=== PATIENT | female | born 1965 | race Caucasian/White ===

== ENCOUNTER 2018-01-12 04:18 | Emergency (ER) | payer SELFPAY ==
[2018-01-12] MEDS ORDERED: Lidocaine 4% Cream 5 GM TUBE w/ Tegaderm ONE (04:52)
[2018-01-12] MEDS ORDERED: Tetracaine 0.5% OPHTH SOLN/PF 4 ML BOT ONE (05:02)
[2018-01-12] MEDS ORDERED: Fentanyl 100 MCG/2 ML VIAL ONE (05:13)
[2018-01-12 05:38] LABS: #Lymphocytes 0.9 thou/uL (1.20-3.40); #Monocytes 0.4 thou/uL (0.11-0.59); #Neutrophils 8.4 thou/uL (1.40-6.50); %Basophils 0.3 % (0.0-1.0); %Eosinophils 0.4 % (0.0-10.0); %Lymphocytes 9.6 % (21.0-51.0); %Neutrophils 85.7 % (42.0-75.0); Hemoglobin 11.9 g/dL (12.0-16.0); Mean Corpuscular HGB CONC 32.8 g/dL (32.0-36.0); Mean Corpuscular Hemoglobin 27.1 pg (27.0-31.0); Mean Corpuscular Volume 82.6 fL (78.0-98.0); Mean Platelet Volume 8.9 fL (7.4-10.4); Platelet Count 173 thou/uL (130-400); RBC Distribution Width 13.8 % (11.5-14.5); White Blood Cell (WBC) Count 9.8 thou/uL (4.8-10.8)
[2018-01-12 05:50] LABS: ALT (SGPT) 62 U/L (8-55); AST (SGOT) 76 U/L (5-34); Albumin 4.3 g/dL (3.5-5.0); Alcohol 177 mg/dL (Less than 10); Alkaline Phosphatase 76 U/L (40-150); Anion Gap 19 mmol/L (10-20); BUN (Urea Nitrogen) 14 mg/dL (9.8-20.1); Bilirubin, Total 0.2 mg/dL (0.2-1.2); Calc. Creatinine Clearance 0 mL/min (70-130); Calcium 8.6 mg/dL (7.8-10.44); Carbon Dioxide 17 mmol/L (22-29); Chloride 108 mmol/L (98-107); Estimated GFR-MDRD 89; Globulin 2.6 g/dL (2.4-3.5); Glucose 111 mg/dL (70-105); Potassium 3.5 mmol/L (3.5-5.1); Protein, Total 6.9 g/dL (6.0-8.3); Sodium 140 mmol/L (136-145)
[2018-01-12] MEDS ORDERED: HYDROmorphone 0.5 MG/0.5 ML SYRINGE ONE ×2 (07:00→07:04)
[2018-01-12] MEDS ORDERED: Fluorescein Opthalmic Strip ONE (07:32)
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
[2018-01-12] MEDS ORDERED: Iopamidol 370 76% 100 ML VIAL ONE (08:59)
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
== END 2018-01-12 07:11 | disposition short-term general hospital (02) ==
LOC: MADERS 04:18
DX: S27.0XXA Traumatic pneumothorax, initial encounter (principal); S22.5XXA Flail chest, initial encounter for closed fracture; S27.329A Contusion of lung, unspecified, initial encounter; S01.01XA Laceration without foreign body of scalp, initial encounter; V86.69XA Passenger of other special all-terrain or other off-road motor vehicle injured in nontraffic accident, initial encounter
CPT/HCPCS: 12001; 36415; 70450; 71046; 71260; 80053; 80307; 85025; 94760; 96374; 96375; G0390; J1170; J3010

== ENCOUNTER 2023-12-04 11:45 | Outpatient (CLI) | payer OTHER | END 2023-12-04 11:46 | disposition home or self-care (01) | LOC: MADLAB 11:45 | PROVIDERS: ATTEND Nurse Practitioner Family | DX: M79.672 Pain in left foot (principal) ==

== ENCOUNTER 2024-09-23 14:36 | Emergency (ER) | payer OTHER ==
[2024-09-23] MEDS ORDERED: HYDROcodone/Acetaminophen 5/325 mg Tablet ONE (16:43)
== END 2024-09-23 18:25 | disposition home or self-care (01) ==
LOC: MADERS 14:36
DX: S83.92XA Sprain of unspecified site of left knee, initial encounter (principal); I10 Essential (primary) hypertension; Z79.899 Other long term (current) drug therapy; W19.XXXA Unspecified fall, initial encounter
CPT/HCPCS: 99283